=== PATIENT | female | born 1930 | race Caucasian/White ===

== ENCOUNTER 2018-02-09 19:33 | Inpatient (IN) ==
--- NOTE | 2018-02-09 19:47 | PDOC ---
HPI - History of Present Illness Date of Service: 02/09/18 Time of Service: 21:30 Chief Complaint: Right hip pain after a fall History of Present Illness: This is an 87 years old female with medical history significant for history of hypertension, coronary artery disease with previous MA treated medically, hypothyroidism, dementia who was transferred to the hospital from [facility] for right hip fracture. It's not clear to me when the patient had the fall. Per my discussion with the ER physician there he thought that it happened last Tuesday however the son as far as he knows she fell today. Evaluation in the ER in [place] showed right hip fracture this was discussed with Dr. Still who suggested transfer here to our service for management of medical issues and surgery in am. The patient has dementia and she received morphine before she came in here so no meaningful information can be obtained from her. She does not appear in distress. She denied pain. Past Medical History Medical History: 1. Hypertension. 2. Dementia. 3. History of arthritis. 4. History of macular degeneration. 5. History of aortic stenosis severity unknown. 6. History of coronary artery disease with previous infarction 2015. 7. History of pelvic fracture. 8. History of numerous fracture in 2015. 9. History of colon cancer status post surgery in 2013 Surgical History: 1. History of colon cancer status post the resection 2013. 2. History of hysterectomy. 3. History of bladder repair surgery Past Social History: does not smoke or drink, lives in a fdc in [place]. Tobacco Use: Never Smoker In the Past 12 Months, Have Used or Abuse Any of the Following Substance: None Alcohol Use: None Medication / Allergies Home Medications: Home Medications 3 Medication Instructions Recorded Confirmed Type Multivitamin [Multi-Vitamin Daily] 1 each PO QD tab 09/03/13 10/07/14 History Lisinopril 1 tab PO DAILY tab 08/23/16 History Memantine HCl [Namenda Xr] 1 cap PO DAILY cap 08/23/16 History Oxycodone HCl/Acetaminophen 1 tab PO Q4H PRN tab 08/23/16 History [Percocet 5-325 Mg Tablet] Sertraline HCl [Zoloft] 1 tab PO DAILY tab 08/23/16 History Acetaminophen [Acetaminophen Extra 2 tab PO Q6H PRN tab 08/30/16 History Strength] Alprazolam [Xanax] 1 tab PO Q8H PRN tab 09/13/16 History Aspirin [Aspir 81] 1 tab PO DAILY tab 09/13/16 History Atorvastatin Calcium 1 tab PO DAILY tab 09/13/16 History Clopidogrel Bisulfate [Plavix] 1 tab PO DAILY tab 09/13/16 History Hydrocodone/Acetaminophen 1 tab PO TID PRN tab 09/13/16 History [Hydrocodon-Acetaminophen 5-325] Allergies/Adverse Reactions: Allergies 3 Allergy/AdvReac Type Severity Reaction Status Date / Time No Known Allergies Allergy Verified 10/07/14 07:35 Review of Systems - Review of Systems ROS Unobtainable: Due to Mental Status Exam - General General Appearance: No Acute Distress, Thin Additional General Exam Details: Sleepy but arousable - Head Head Exam: Normal Inspection - Eye Eye Exam: POSITIVE: Normal Appearance - ENT ENT Exam: POSITIVE: Normal Exam - Neck Neck Exam: Normal Inspection - Respiratory Respiratory Exam: POSITIVE: Clear to Auscultation - Bilaterally - Cardiovascular Cardiovascular Exam: POSITIVE: RRR - GI/Abdominal GI/Abdominal Exam: POSITIVE: Normal Bowel Sounds, Non Tender, Non Distended, Soft, No Organomegaly - Rectal Rectal Exam: POSITIVE: Deferred - External Exam: POSITIVE: Deferred - Extremities Additional Extremities Exam Details: She is not very cooperative during the exam and not following all the commands. However she is moving her upper extremities. Lower extremities difficult to feel the pulses. - Neurological Additional Neurological Exam Details: Sleepy but arousable. Doesn't follow all the commands she is moving upper extremities freely. Not sure about the lower extremities as she is not following the commands. she is wiggling her toes. - Psychiatric Psychiatric Exam: POSITIVE: Flat Affect - Integumentary Integumentary Exam: POSITIVE: Dry Results - Labs CBC and BMP: 02/09/18 19:55 02/09/18 19:55 - EKG Data -: EKG Interpreted by Me (old anteroseptal MA) Rate: Normal EKG Shows Normal: Sinus Rhythm (EKG did show old anteroseptal MA. On her previous EKG to compare. But patient does have a history of MA.) - Imaging Status: Report Reviewed by Me (CT right showed 1. Intertrochanteric proximal right femur fracture. 2. Curvilinear defect and deformity at the left pubic bone is favored to be related to a non-healed chronic fracture given regional sclerotic changes and no significant regional hematoma. 3. Soft tissue contusion involving the right iliopsoas muscle and regional tissues.) Assessment and Plan - Patient Problems (1) Closed right hip fracture Current Visit: Yes Status: Acute Comment: Spoke with the Dr. Still he is planning to do surgery tomorrow. Based on the revised cardiac risk index criteria I think her rate of cardiac , non-fatal myocardial infarction and none fatal cardiac arrest is about 1% based on one risk factor which is a history of ischemic heart disease. Her rate of myocardial infarction, pulmonary edema, atrial fibrillation, cardiac arrest and complete heart block is 1.3%. I don't think there is a necessity to perform more testing since when she had her myocardial infarction the treatment at that time was medical treatment and noninvasive. In addition since the surgery is more urgent I think the benefits of proceeding with surgery outweighed the risk of waiting to perform other testing. I did speak with the son and he understands the risk of surgery including or MA. He wished for his mother to proceed with surgery. He is the power of deputy prosecuting attorney. Code(s): S72.001A - Fracture of unspecified part of neck of right femur, initial encounter for closed fracture (2) Hyponatremia Current Visit: Yes Status: Acute Comment: Unclear etiology, I think will give some fluid overnight since her blood pressure also is borderline and repeat her labs in the morning. Code(s): E87.1 - Hypo-osmolality and hyponatremia (3) Hypertension Current Visit: Yes Status: Acute Comment: I think we'll hold off on her Norvasc and her lisinopril as her blood pressure is borderline. Will write for the Toprol. Code(s): I10 - Essential (primary) hypertension (4) History of dementia Current Visit: Yes Status: Acute Comment: Continue with the fluoxetine and benzodiazepine as needed for agitation. For some reason she is on Depakote I am not sure why we'll continue with it. Code(s): Z86.59 - Personal history of other mental and behavioral disorders (5) Hypothyroidism Current Visit: Yes Status: Acute Comment: Same med Code(s): E03.9 - Hypothyroidism, unspecified
--- NOTE | 2018-02-09 20:04 | EKG ---
[address] [address] Measurements Intervals [place] Rate: 75 P: 86 NC: 167 QRS: 44 QRSD: 89 T: 61 QT: 405 QTc: 433 Interpretive Statements SINUS RHYTHM ANTEROSEPTAL MYOCARDIAL INFARCTION [40+ ms Q WAVE IN V1-V4], OF INDETERMINATE AGE Compared to ECG 08/19/2013 22:30:06 Sinus tachycardia no longer present Myocardial infarct finding still present Inferior ST depression more marked Electronically Signed On 02-10-18 08:50:19 MDT by Brock Mcintyre MD [email or web address]
[2018-02-09 20:08] LABS: BASOPHILS # (AUTO) 0 10*3/UL; BASOPHILS % (AUTO) 0 % (0-1); EOSINOPHILS # (AUTO) 0 10*3/UL; EOSINOPHILS % (AUTO) 0 % (0-8); Hematocrit [HCT] 30.6 % (37.0-47.0); Hemoglobin [HGB] 10.3 g/dL (12.0-16.0); LYMPHOCYTES # (AUTO) 0.29 10*3/uL; MEAN CORPUSCULAR HEMOGLOBIN 33.7 PG (27-31); MEAN CORPUSCULAR HGB CONC 33.7 g/dL (33-37); MEAN PLATELET VOLUME 9.5 FL (7.4-12.2); MONOCYTES % (AUTO) 9.7 % (5-15); NEUTROPHILS # (AUTO) 9.01 10*3/UL; NEUTROPHILS % (AUTO) 87.3 % (50-80); RED BLOOD COUNT 3.06 10^6/uL (4.20-5.40)
[2018-02-09 20:13] LABS: PLATELET MORPHOLOGY COMMENT NORMAL MORPHOLOGY (NORM); RBC MORPHOLOGY COMMENT NORMAL MORPHOLOGY (NORM); WBC MORPHOLOGY COMMENT NORMAL MORPHOLOGY (NORM)
[2018-02-09 20:19] LABS: BLOOD UREA NITROGEN 27 mg/dL (7-22); BUN/CREATININE RATIO 24.54 (6-20); SERUM ALBUMIN 3.9 g/dL (3.5-4.8)
[2018-02-09] MEDS ORDERED: DOCUSATE 100 MG CAPSULE PO PRN (21:07)
[2018-02-09] MEDS ORDERED: LIDOCAINE W/ SODIUM BICARB 0.5 ML SYR SUBD PRN (21:07)
[2018-02-09] MEDS ORDERED: CALCIUM CARBONATE 500 MG (TUMS) CHEWABLE TABLET PO PRN (21:07)
[2018-02-09] MEDS ORDERED: NORMAL SALINE 10 ML SYRINGE FLUSH IVP PRN (21:07)
[2018-02-09] MEDS ORDERED: ONDANSETRON 4 MG/2 ML VIAL IVP PRN (21:07)
[2018-02-09] MEDS ORDERED: ACETAMINOPHEN 325 MG TABLET PO PRN (21:07)
[2018-02-09] MEDS ORDERED: DIVALPROEX SODIUM 250 MG TABLET PO SCH (21:13)
[2018-02-09] MEDS ORDERED: ALPRAZolam Tab 0.25 MG TABLET PO PRN (21:15)
--- NOTE | 2018-02-09 21:39 | DI ---
EXAM: CT Pelvis Without Intravenous Contrast CLINICAL HISTORY: ITS.REASON RT HIP FX Physician Notes: Tech Comments: TECHNIQUE: Axial computed tomography images of the pelvis without intravenous contrast. COMPARISON: No relevant prior studies available. FINDINGS: Bowel: Postsurgical changes noted at the rectum. Hysterectomy is noted. Colonic diverticulosis is present without evidence for acute diverticulitis. No obstruction. Appendix: No findings to suggest acute appendicitis. Intraperitoneal space: Unremarkable. No free air. No significant fluid collection. Bladder: Unremarkable. No stones. Reproductive: See above. Bones/joints: Complex intertrochanteric right femoral fracture is present with component of impaction and slight angulation. The right femoral acetabular joint is intact,. Fracture deformity of the left superior and inferior pubic ramus, extending into the pubic symphysis. There is regional sclerosis and callus formation, without complete fusion at the curvilinear defect. Symmetric joint space narrowing at the femoral acetabular joints, with mild rim osteophytosis. Bilateral sacroiliac joint arthropathy and multilevel degenerative disc disease noted. No dislocation. Soft tissues: Soft tissue edema and likely contusion involving the right iliopsoas. Stranding extends along the right iliac/common femoral vessels. Soft tissue contusion to the subcutaneous fat at the level of the right femoral fracture. Vasculature: Atherosclerosis. No lower abdominal aortic aneurysm. Lymph nodes: Unremarkable. No enlarged lymph nodes. IMPRESSION: 1. Intertrochanteric proximal right femur fracture. 2. Curvilinear defect and deformity at the left pubic bone is favored to be related to a non-healed chronic fracture given regional sclerotic changes and no significant regional hematoma. 3. Soft tissue contusion involving the right iliopsoas muscle and regional tissues.
[2018-02-09] MEDS: MORPHINE SULFATE 2 MG/1 ML IVP PRN (22:25)
[2018-02-09] MEDS: Sodium Chloride 0.9% 1,000 ML IV SCH (22:25)
[2018-02-09] MEDS: DIVALPROEX SODIUM 250 MG TABLET PO SCH (22:28)
[2018-02-10] MEDS: MORPHINE SULFATE 2 MG/1 ML IVP PRN ×2 (04:22→09:17)
[2018-02-10] MEDS ORDERED: LIDOCAINE HCL 2 % 10 ML JELLY URO-JECT TOPICAL PRN (05:02)
[2018-02-10 06:09] LABS: BLOOD UREA NITROGEN 34 mg/dL (7-22); BUN/CREATININE RATIO 18.88 (6-20)
[2018-02-10] MEDS: LEVOTHYROXINE 25 MCG TABLET PO SCH (06:17)
[2018-02-10 08:28] LABS: BILIRUBIN,URINE SMALL (NEG); COLOR,URINE YELLOW; GLUCOSE, URINE (UA) 100 mg/dL (NEG); OCCULT BLOOD,URINE MODERATE (NEG); PROTEIN,URINE 100 mg/dl (NEG); UROBILINOGEN,URINE 0.2 mg/dL (0.2)
[2018-02-10 08:32] LABS: CLARITY,URINE CLOUDY (CLEAR)
[2018-02-10 08:33] LABS: BACTERIA,URINE FEW; SQUAMOUS EPITHELIAL CELL,UR MODERATE; URINE CRYSTALS MODERATE; URINE SAMPLE TYPE CATH SPECIMEN
[2018-02-10] MEDS ORDERED: FLUoxetine 20 MG CAPSULE PO SCH (09:00)
--- NOTE | 2018-02-10 09:01 | CONSULT ---
Consult Note - Consult Consult Date: 02/10/18 Reason for Consult: PreOp Consulation : Ortho Primary Care Provider: ÁNGEL BACA - History of Present Illness History of Present Illness: Monik is an 87-year-old female with severe dementia was transferred late last evening with a right peritrochanteric hip fracture. She resides at the [facility]. She is a very limited ambulator. Apparently she only pivot transfers. There was some lengthy discussion yesterday prior to transfer between the patient's son and the emergency room physician. It was discussed whether or not he wanted to have his mother's hip fixed. Apparently the decision was made for her to have it fixed. She was therefore transported to our facility in [facility]. I visited with the patient this morning. She is lying on the bed awake but not conversant. Does not seem to be having a tremendous amount of pain. Exam reveals a pleasant female 128 pounds mild discomfort. Right lower extremity is externally rotated. Intact laterally. Hemoglobin and hematocrit 10 and 30. X-rays of the right hip as well as CAT scan were reviewed. These reveal a peritrochanteric hip fracture with varus posture. There is comminution of the greater trochanter. Impression: Right peritrochanteric hip fracture. Plan: Is to proceed with intramedullary screw fixation. I think a compression hip screw could be a backup plan but I think the intramedullary device will be more stable. The goals are fairly limited with this patient. Basically giving her a more stable hip so that she can sit up in transfer. I will discuss the risks with the son will be present later this morning. Plan on proceeding midafternoon. The risks include but are not limited to infection, nonunion, malunion, hardware cut out, nerve injury, bleeding, anesthetic complications, and even . Informed consent will be obtained prior to proceeding. Past Medical History Medical History: 1. Hypertension. 2. Dementia. 3. History of arthritis. 4. History of macular degeneration. 5. History of aortic stenosis severity unknown. 6. History of coronary artery disease with previous infarction 2015. 7. History of pelvic fracture. 8. History of numerous fracture in 2015. 9. History of colon cancer status post surgery in 2013 Surgical History: 1. History of colon cancer status post the resection 2013. 2. History of hysterectomy. 3. History of bladder repair surgery Past Social History: does not smoke or drink, lives in a fpc in [place]. Tobacco Use: Never Smoker In the Past 12 Months, Have Used or Abuse Any of the Following Substance: None Alcohol Use: None Medication / Allergies Home Medications: Home Medications 3 Medication Instructions Recorded Confirmed Type Multivitamin [Multi-Vitamin Daily] 1 each PO QD tab 09/03/13 10/07/14 History Lisinopril 1 tab PO DAILY tab 08/23/16 History Memantine HCl [Namenda Xr] 1 cap PO DAILY cap 08/23/16 History Oxycodone HCl/Acetaminophen 1 tab PO Q4H PRN tab 08/23/16 History [Percocet 5-325 Mg Tablet] Sertraline HCl [Zoloft] 1 tab PO DAILY tab 08/23/16 History Acetaminophen [Acetaminophen Extra 2 tab PO Q6H PRN tab 08/30/16 History Strength] Alprazolam [Xanax] 1 tab PO Q8H PRN tab 09/13/16 History Aspirin [Aspir 81] 1 tab PO DAILY tab 09/13/16 History Atorvastatin Calcium 1 tab PO DAILY tab 09/13/16 History Clopidogrel Bisulfate [Plavix] 1 tab PO DAILY tab 09/13/16 History Hydrocodone/Acetaminophen 1 tab PO TID PRN tab 09/13/16 History [Hydrocodon-Acetaminophen 5-325] ALPRAZolam Tab [Xanax Tab] PO TID PRN 02/10/18 History Acetaminophen 500 PO TID PRN 02/10/18 History Amlodipine Besylate PO QPM 02/10/18 History Celecoxib [Celebrex] PO DAILY 02/10/18 History Cholestyramine [Cholestyramine PO BID 02/10/18 History Resin] Cyanocobalamin Inj [Vitamin B-12 1 ml IM Q30D 02/10/18 02/10/18 History Inj] Divalproex Sodium [Depakote] PO 02/10/18 History Fluoxetine HCl PO DAILY 02/10/18 History HYDROcodone/APAP 5/325 Tab [[place] PO TID PRN 02/10/18 History 5/325 Tab] Levothyroxine Sodium [Synthroid] PO QAM 02/10/18 History Lidocaine/Prilocaine TOPICAL BID 02/10/18 History [Lidocaine-Prilocaine Cream] Lisinopril PO BID 02/10/18 History Loperamide [Imodium] PO Q4H PRN PRN 02/10/18 History Lutein 20 PO DAILY 02/10/18 History Metoprolol Succinate [Toprol XL] 25 PO BID 02/10/18 History Pantoprazole Sodium [Protonix] 40 PO DAILY 02/10/18 History Allergies/Adverse Reactions: Allergies 3 Allergy/AdvReac Type Severity Reaction Status Date / Time citalopram [From Celexa] Allergy NOT Verified 02/10/18 06:30 APPLICABLE donepezil [From Aricept] Allergy NOT Verified 02/10/18 06:30 APPLICABLE nitrofurantoin Allergy NOT Verified 02/10/18 06:30 APPLICABLE promethazine [From Phenergan] Allergy NOT Verified 02/10/18 06:30 APPLICABLE Exam - Vitals Vital Signs: Vital Signs Temperature 97.9 F Temperature Source Temporal Artery Scan Pulse Rate [Pulse Oximeter] 74 Pulse Rate [Left Dorsalis 72 Pedis] Pulse Rate [Right Dorsalis 72 Pedis] Pulse Rate [Bilateral Radial] 72 Pulse Rate [Apical] 72 Respiratory Rate 18 Blood Pressure [Right Arm] 92/43 Pulse Ox 90 Oxygen Flow Rate 2 Oxygen Delivery Method Nasal Cannula Height 5 ft 4 in Weight 128 lb Results - Labs CBC and BMP: 02/09/18 19:55 02/10/18 04:25
[2018-02-10] MEDS: Metoprolol TARTRATE Tab 25 MG TAB PO SCH ×2 (09:09→20:57)
[2018-02-10] MEDS: DIVALPROEX SODIUM 250 MG TABLET PO SCH ×2 (09:09→20:22)
[2018-02-10] MEDS: FLUOXETINE 10 MG PO SCH (09:10)
[2018-02-10] MEDS: PANTOPRAZOLE 40 MG TABLET PO SCH (09:13)
--- NOTE | 2018-02-10 09:36 | PDOC(PROG) ---
Date and Time of Service: 02/10/2018 9:33 AM Interval History: Subjective Patient is sleepy but arousable. Denying pain. I keep reminding her that's the reason she is here as the fracture right hip and she still doesn't remember. Objective : Data - Labs CBC and BMP: 02/09/18 19:55 02/10/18 11:57 Objective : Exam - General General Appearance: No Acute Distress, Cooperative, Thin - Head Head Exam: Normal Inspection - Eye Eye Exam: Normal Appearance - ENT ENT Exam: Normal Exam - Neck Neck Exam: Normal Inspection - Respiratory Respiratory Exam: Clear to Auscultation - Bilaterally - Cardiovascular Cardiovascular Exam: RRR, Systolic Murmur - GI/Abdominal GI/Abdominal Exam: Normal Bowel Sounds, Non Tender, Non Distended, Soft, No Organomegaly - Rectal Rectal Exam: Deferred - External Exam: Deferred - Extremities Additional Extremities Exam Details: Right leg is externally rotated. She is disoriented to time place person. This is secondary to her underlying dementia. - Neurological Neurological Exam: Alert Additional Neurological Exam Details: She is moving her upper extremities well. She was wiggling her toes. Limited movement of the right hip because of pain - Psychiatric Psychiatric Exam: Flat Affect Assessment and Plan - Patient Problems (1) Closed right hip fracture Current Visit: Yes Status: Acute Comment: Supposed to have the surgery today in the afternoon. Code(s): S72.001A - Fracture of unspecified part of neck of right femur, initial encounter for closed fracture (2) Hyponatremia Current Visit: Yes Status: Acute Comment: Continue IV fluid. Code(s): E87.1 - Hypo-osmolality and hyponatremia (3) Hypertension Current Visit: Yes Status: Acute Comment: Continue holding blood pressure medication as her blood pressure is borderline. Code(s): I10 - Essential (primary) hypertension (4) History of dementia Current Visit: Yes Status: Acute Comment: Resume her previous medication postsurgery. Code(s): Z86.59 - Personal history of other mental and behavioral disorders (5) Hypothyroidism Current Visit: Yes Status: Acute Comment: Same med Code(s): E03.9 - Hypothyroidism, unspecified (6) Acute renal failure Current Visit: Yes Status: Acute Comment: Her creatinine is worse today. I think will give her more fluids and repeat her labs in the noontime. and decided about the surgery Code(s): N17.9 - Acute kidney failure, unspecified (7) Abnormal finding on urinalysis Current Visit: Yes Status: Acute Comment: UA is abnormal, was sent for culture will give a dose of Rocephin. Code(s): R82.90 - Unspecified abnormal findings in urine
[2018-02-10] MEDS ORDERED: Sodium Chloride 0.9% 250 ML IV ONE (09:45)
[2018-02-10] MEDS ORDERED: Sodium Chloride 0.9% 0 ML IV ONE (10:16)
[2018-02-10] MEDS: cefTRIAXone Inj 1 GM in Sodium Chloride 0.9% 100 ML IV SCH (10:22)
[2018-02-10 12:33] LABS: BLOOD UREA NITROGEN 38 mg/dL (7-22); BUN/CREATININE RATIO 18.09 (6-20)
[2018-02-10] MEDS: Sodium Chloride 0.9% 1,000 ML IV SCH ×3 (12:36→23:19)
[2018-02-10] MEDS ORDERED: fentaNYL Inj 100 MCG/2 ML VIAL IVP PRN (12:46)
[2018-02-10] MEDS ORDERED: ATROPINE SULFATE 0.4 MG/1 ML VIAL IVP PRN (12:46)
[2018-02-10] MEDS ORDERED: HYDROmorphone 2 MG/1 ML IVP PRN (12:46)
[2018-02-10] MEDS ORDERED: NORMAL SALINE 10 ML SYRINGE FLUSH IVP PRN (12:46)
[2018-02-10] MEDS ORDERED: Ondansetron ODT Tab 8 MG TAB PO PRN (12:46)
[2018-02-10] MEDS ORDERED: LIDOCAINE W/ SODIUM BICARB 0.5 ML SYR SUBD PRN (12:46)
[2018-02-10] MEDS ORDERED: Prochlorperazine Edisylate Inj 10mg/2ml vial IVP PRN (12:46)
[2018-02-10] MEDS ORDERED: ONDANSETRON 4 MG/2 ML VIAL IVP PRN (12:46)
[2018-02-10] MEDS ORDERED: Lactated Ringers 1,000 ML PRIMARY IV SCH (13:00)
[2018-02-10] MEDS: HYDROcodone-APAP 5 MG -325 MG TABLET PO PRN ×2 (13:32→17:27)
[2018-02-11] MEDS: MORPHINE SULFATE 2 MG/1 ML IVP PRN ×2 (03:19→06:57)
[2018-02-11 05:33] LABS: BASOPHILS # (AUTO) 0.01 10*3/UL; BASOPHILS % (AUTO) 0.1 % (0-1); EOSINOPHILS # (AUTO) 0 10*3/UL; EOSINOPHILS % (AUTO) 0 % (0-8); Hemoglobin [HGB] 7.3 g/dL (12.0-16.0); LYMPHOCYTES # (AUTO) 0.24 10*3/uL; MEAN CORPUSCULAR HEMOGLOBIN 34.4 PG (27-31); MEAN CORPUSCULAR HGB CONC 33.2 g/dL (33-37); MEAN CORPUSCULAR VOLUME 103.8 FL (81-99); MEAN PLATELET VOLUME 10.1 FL (7.4-12.2); MONOCYTES # (AUTO) 1.45 10*3/UL (0.3-0.8); MONOCYTES % (AUTO) 15.7 % (5-15); NEUTROPHILS # (AUTO) 7.55 10*3/UL; NEUTROPHILS % (AUTO) 81.5 % (50-80); RED BLOOD COUNT 2.12 10^6/uL (4.20-5.40)
[2018-02-11 05:46] LABS: BLOOD UREA NITROGEN 33 mg/dL (7-22); SERUM ALBUMIN 2.8 g/dL (3.5-4.8)
[2018-02-11 05:49] LABS: PLATELET MORPHOLOGY COMMENT NORMAL MORPHOLOGY (NORM); RBC MORPHOLOGY COMMENT NORMAL MORPHOLOGY (NORM); WBC MORPHOLOGY COMMENT NORMAL MORPHOLOGY (NORM)
[2018-02-11] MEDS: PANTOPRAZOLE 40 MG TABLET PO SCH (06:40)
[2018-02-11] MEDS: LEVOTHYROXINE 25 MCG TABLET PO SCH (06:40)
[2018-02-11] MEDS: Sodium Chloride 0.9% 1,000 ML IV SCH ×4 (06:40→21:16)
[2018-02-11] MEDS: HYDROcodone-APAP 5 MG -325 MG TABLET PO PRN ×3 (06:43→17:25)
[2018-02-11] MEDS ORDERED: Sodium Chloride 0.9% 500 ML PRIMARY IV ONE (08:13)
--- NOTE | 2018-02-11 08:17 | PDOC(PROG) ---
Date and Time of Service: 02/11/2018 8:16 AM Interval History: Subjective Patient is sleepy but arousable. However she has dementia and she doesn't say much. Yesterday we did postpone the surgery because of low blood pressure and acute renal failure. Blood pressure numbers seem to be better today. Objective : Data - Labs CBC and BMP: 02/11/18 04:30 02/11/18 04:30 Objective : Exam - General General Appearance: No Acute Distress, Thin - Head Head Exam: Normal Inspection - Eye Eye Exam: Normal Appearance - ENT ENT Exam: Normal Exam - Neck Neck Exam: Normal Inspection - Respiratory Respiratory Exam: Clear to Auscultation - Bilaterally - Cardiovascular Cardiovascular Exam: Systolic Murmur - GI/Abdominal GI/Abdominal Exam: Normal Bowel Sounds, Non Tender, Non Distended, Soft, No Organomegaly - Rectal Rectal Exam: Deferred - External Exam: Deferred - Extremities Additional Extremities Exam Details: Right leg externally rotated. - Neurological Additional Neurological Exam Details: Sleepy but arousable. Moves her extremities except the limited of the right leg.. - Psychiatric Psychiatric Exam: Flat Affect - Integumentary Integumentary Exam: Dry, Pallor Assessment and Plan - Patient Problems (1) Closed right hip fracture Current Visit: Yes Status: Acute Comment: Surgery was postponed yesterday because of the hypotension and the renal failure, her blood pressure and kidney function improved today. I did speak with Dr. Still because of the anemia will give her two units of bloods and plan for surgery tomorrow. Code(s): S72.001A - Fracture of unspecified part of neck of right femur, initial encounter for closed fracture (2) Hyponatremia Current Visit: Yes Status: Acute Comment: This is improved, I think we'll cut back on the fluid. Code(s): E87.1 - Hypo-osmolality and hyponatremia (3) Hypertension Current Visit: Yes Status: Acute Comment: I thinks we can Resume her metoprolol as blood pressure seem to be better. Code(s): I10 - Essential (primary) hypertension (4) History of dementia Current Visit: Yes Status: Acute Comment: Continue fluoxetine and alprazolam as needed Code(s): Z86.59 - Personal history of other mental and behavioral disorders (5) Hypothyroidism Current Visit: Yes Status: Acute Comment: Same med Code(s): E03.9 - Hypothyroidism, unspecified (6) Acute renal failure Current Visit: Yes Status: Acute Comment: Looks to be pre-renal . This is improved. Code(s): N17.9 - Acute kidney failure, unspecified (7) Abnormal finding on urinalysis Current Visit: Yes Status: Acute Comment: UA was abnormal and we elected to start her on antibiotics continue. Code(s): R82.90 - Unspecified abnormal findings in urine (8) Anemia Current Visit: Yes Status: Acute Comment: Blood count is low at 7.3 was 10.3 when she came in. I suspect she has underlying anemia for a period of time. Her iron levels are low. I think will give her 2 units of blood repeat her labs tomorrow. Code(s): D64.9 - Anemia, unspecified
[2018-02-11] MEDS: DIVALPROEX SODIUM 250 MG TABLET PO SCH ×2 (09:55→21:14)
[2018-02-11] MEDS: Metoprolol TARTRATE Tab 25 MG TAB PO SCH ×2 (09:55→21:15)
[2018-02-11] MEDS: cefTRIAXone Inj 1 GM in Sodium Chloride 0.9% 100 ML IV SCH (09:56)
[2018-02-11] MEDS: FLUOXETINE 10 MG PO SCH (09:59)
--- NOTE | 2018-02-11 11:19 | ORTHO.PROG ---
Last Taken Vital Signs: Vital Signs - Last Taken Temperature 98.2 F 02/11/18 11:04 Pulse Rate 74 02/11/18 11:04 Respiratory Rate 13 02/11/18 11:04 Blood Pressure 112/46 02/11/18 11:04 Pulse Ox 99 02/11/18 11:04 Subjective: Patient lying in bed. Her surgery was postponed yesterday because of acute renal failure and hypotension. Her blood pressure is better this morning. Her renal failure seems to be correcting. Her hemoglobin and hematocrit is low at 7.3 and 22. She will be given 2 units of blood today. Objective: Right lower extremity is on a pillow. Lateral skin is intact. X-rays of been previously reviewed. Hemoglobin and hematocrit 7.3 and 22. Assessment: Impression: Right peritrochanteric hip fracture. #2 anemia. #3 severe dementia. Plan: Plan: Is the patient will receive 2 units of blood today. We will type and cross and have 2 more units available for tomorrow. Plan on proceeding with surgery tomorrow around 11:30 as long as the patient remains stable between now and then.
[2018-02-12] MEDS: MORPHINE SULFATE 2 MG/1 ML IVP PRN ×3 (03:20→18:08)
[2018-02-12] MEDS: LEVOTHYROXINE 25 MCG TABLET PO SCH (04:40)
[2018-02-12 06:42] LABS: BASOPHILS # (AUTO) 0.01 10*3/UL; BASOPHILS % (AUTO) 0.1 % (0-1); EOSINOPHILS # (AUTO) 0.03 10*3/UL; EOSINOPHILS % (AUTO) 0.4 % (0-8); Hemoglobin [HGB] 10.4 g/dL (12.0-16.0); LYMPHOCYTES # (AUTO) 0.19 10*3/uL; MEAN CORPUSCULAR HEMOGLOBIN 31.5 PG (27-31); MEAN CORPUSCULAR HGB CONC 32.5 g/dL (33-37); MEAN PLATELET VOLUME 9.7 FL (7.4-12.2); MONOCYTES # (AUTO) 0.91 10*3/UL (0.3-0.8); MONOCYTES % (AUTO) 13.1 % (5-15); NEUTROPHILS # (AUTO) 5.78 10*3/UL; NEUTROPHILS % (AUTO) 83.6 % (50-80)
[2018-02-12 06:56] LABS: PLATELET MORPHOLOGY COMMENT NORMAL MORPHOLOGY (NORM); RBC MORPHOLOGY COMMENT NORMAL MORPHOLOGY (NORM); WBC MORPHOLOGY COMMENT NORMAL MORPHOLOGY (NORM)
[2018-02-12 07:02] LABS: BLOOD UREA NITROGEN 22 mg/dL (7-22); BUN/CREATININE RATIO 36.66 (6-20)
[2018-02-12] MEDS: Sodium Chloride 0.9% 1,000 ML IV SCH (07:45)
--- NOTE | 2018-02-12 08:16 | ORTHO.PROG ---
Last Taken Vital Signs: Vital Signs - Last Taken Temperature 97.0 F 02/12/18 07:33 Pulse Rate 72 02/12/18 07:33 Respiratory Rate 16 02/12/18 07:33 Blood Pressure 162/57 02/12/18 07:33 Pulse Ox 92 02/12/18 07:33 Subjective: Patient lying in bed. Received 2 units of blood yesterday Objective: Vital signs stable patient is afebrile Hemoglobin and hematocrit 10 and 32, platelets 116 Assessment: Impression: Right hip fracture. Hemoglobin has corrected nicely with blood she received yesterday. Plan: Plan: Is to proceed with fixation of right hip today. We will type and cross 2 more more units of blood so it is available.
[2018-02-12] MEDS: PANTOPRAZOLE 40 MG TABLET PO SCH (08:57)
[2018-02-12] MEDS: DIVALPROEX SODIUM 250 MG TABLET PO SCH (10:05)
[2018-02-12] MEDS: Metoprolol TARTRATE Tab 25 MG TAB PO SCH (10:06)
[2018-02-12] MEDS: FLUOXETINE 10 MG PO SCH (10:06)
[2018-02-12] MEDS: cefTRIAXone Inj 1 GM in Sodium Chloride 0.9% 100 ML IV SCH (10:13)
[2018-02-12] MEDS ORDERED: MIDAZOLAM 5 MG/1 ML ONE (10:34)
[2018-02-12] MEDS ORDERED: LIDOCAINE W/ SODIUM BICARB 0.5 ML SYR ONE (10:35)
[2018-02-12] MEDS ORDERED: KETAMINE 100 MG/1 ML - 5 ML ONE (10:35)
[2018-02-12] MEDS ORDERED: Lactated Ringers 1,000 ML PRIMARY IV ONE (10:35)
[2018-02-12] MEDS ORDERED: fentaNYL Inj 100 MCG/2 ML VIAL ONE ×2 (10:35→13:05)
[2018-02-12] MEDS ORDERED: Sodium Chloride 0.9% vial 10 ML ONE (10:36)
[2018-02-12] MEDS ORDERED: VECURONIUM BROMIDE 10 MG VIAL ONE (10:36)
[2018-02-12] MEDS ORDERED: PHENYLEPHRINE 10,000 MCG/1 ML VIAL ONE (10:42)
[2018-02-12] MEDS ORDERED: Sodium Chloride 0.9% 250 ML IV ONE (10:52)
[2018-02-12] MEDS ORDERED: PROPOFOL 10 MG/1 ML (200 MG/20 ML) VIAL IV ONE (11:03)
[2018-02-12] MEDS ORDERED: ceFAZolin Inj 2gm (Premix) 2 GM/50 ML BAG IV ONE ×2 (11:09→11:30)
[2018-02-12] MEDS ORDERED: BUPIVACAINE 0.25% W/ EPI - 10 ML VIAL ONE (12:54)
[2018-02-12] MEDS ORDERED: NEOSTIGMINE 1 MG/1 ML - 10 ML ONE (12:56)
[2018-02-12] MEDS ORDERED: GLYCOPYRROLATE 0.2 MG/1 ML VIAL ONE (12:56)
[2018-02-12] MEDS ORDERED: ONDANSETRON 4 MG/2 ML VIAL ONE (12:57)
[2018-02-12] MEDS ORDERED: fentaNYL Inj 100 MCG/2 ML VIAL IVP PRN (13:38)
[2018-02-12] MEDS ORDERED: LIDOCAINE W/ SODIUM BICARB 0.5 ML SYR SUBD PRN (13:38)
[2018-02-12] MEDS ORDERED: ONDANSETRON 4 MG/2 ML VIAL IVP PRN ×2 (13:38→14:58)
[2018-02-12] MEDS ORDERED: NORMAL SALINE 10 ML SYRINGE FLUSH IVP PRN (13:38)
[2018-02-12] MEDS ORDERED: ATROPINE SULFATE 0.4 MG/1 ML VIAL IVP PRN (13:38)
--- NOTE | 2018-02-12 13:39 | ORTHO.OP ---
Surgery Date: 02/12/18 Preoperative Diagnosis: Right intertrochanteric peritrochanteric hip fracture. Postoperative Diagnosis: Same Procedure: Open treatment right intertrochanteric hip fracture with a cephalo- medullary nail. (Biomet affixus nail) Surgeon: Aleja Still MD Sewing Machine Operator: CATHLEEN Pandya Anesthesia Provider: Kathy Zepeda CRNA Anesthesia Type: General Estimated Blood Loss (mL): 100 Fluids: 1 L of crystalloid. Urine output 150 mL. Complications: None Operative Summary: Extubated and taken to recovery in stable condition.
[2018-02-12] MEDS ORDERED: Sodium Chloride 0.9% 1,000 ML ONE (13:42)
[2018-02-12] MEDS ORDERED: Lactated Ringers 1,000 ML PRIMARY IV SCH (13:45)
[2018-02-12] MEDS ORDERED: METOPROLOL TARTRATE 5 MG/5 ML VIAL ONE (14:15)
--- NOTE | 2018-02-12 14:19 | CRNA.PROGR ---
Anesthesia Time - - Start date: 02/12/18 End date: 02/12/18 - Procedure/Recovery Time Anesthesia : Time In: 11:11 Anesthesia : Time Out: 13:45 Anesthesia : Total Time: 154 - Total Anesthesia Time Total Anesthesia Time (minutes): 154 - Other Weight: 58.06 kg Height: 5 ft 4 in Body Mass Index (BMI): 21.9 Physical Status: P4 (Hip fracture, Dementia, HTN, ASCVD) Anesthesia Type: General Anesthesia : ET
--- NOTE | 2018-02-12 14:20 | CRNA.PROGR ---
Anesthesia Recovery Phase I - Post Anesthesia Evaluation Patient's Condition on Arrival in Phase I: Stable Patient's Condition on Arrival in Phase II: Stable Pain Level: 1 (denies pain. ?)
--- NOTE | 2018-02-12 14:25 | CRNA.PROGR ---
Post Anesthesia Phase II - Post Anesthesia Phase II Patient Stable and Discharged To: Med/Surg Care Assumed By Surgeon: Aleja Still MD Temperature: 98.7 F Pulse Rate: 83 Respiratory Rate: 13 Blood Pressure: 196/93 Pulse Ox: 98 Total Charley Score at Discharge: 8 Post Anesthesia Discharge Criteria Met: Yes Additional Details: Dementia unchanged. She denies pain. BP ELEVATED . Gave metoprolol 2.5 mg. since she did not get her am oral dose. Very difficult to determine if she has pain.Will leave Blood pressure issues to Hospitalist.
[2018-02-12] MEDS ORDERED: MORPHINE SULFATE 2 MG/1 ML IVP PRN (14:58)
[2018-02-12] MEDS ORDERED: D5-1/2NS + 20mEq KCL 1,000 ML PRIMARY IV SCH (14:58)
[2018-02-12] MEDS ORDERED: HYDROcodone-APAP 5 MG -325 MG TABLET PO PRN (14:58)
[2018-02-12] MEDS ORDERED: ALPRAZolam Tab 0.25 MG TABLET PO PRN (14:58)
[2018-02-12] MEDS ORDERED: CYANOCOBALAMIN 1000 MCG/1 ML VIAL IM SCH (14:58)
[2018-02-12] MEDS ORDERED: LABETALOL 20 MG/4 ML (5 MG/1 ML) SYRINGE IVP PRN (15:27)
--- NOTE | 2018-02-12 15:54 | PDOC(PROG) ---
Date and Time of Service: 02/12/2018, 1548 Interval History: out of surgery. was hypertensive but came down some with pain medications. got two units FFP in OR, probably related to thrombocytopenia. no complaints during my exam. stop fluids. Objective : Data - Labs CBC and BMP: 02/12/18 06:32 02/12/18 06:32 Additional Lab Results: 02/10/18 08:57 Urine Culture - Preliminary Urine,Catheterized > 100,000 gram positive cocci Objective : Exam - General General Appearance: No Acute Distress Additional General Exam Details: Vital Signs - Last Taken Temperature 97.5 F 02/12/18 14:35 Pulse Rate 83 02/12/18 14:35 Respiratory Rate 12 02/12/18 14:35 Blood Pressure 177/86 02/12/18 14:35 Pulse Ox 97 02/12/18 14:35 - Head Head Exam: Normal Inspection, Normocephalic, Atraumatic - Eye Eye Exam: No Scleral Icterus - ENT ENT Exam: Mucous Membranes Moist - Respiratory Respiratory Exam: Clear to Auscultation - Bilaterally, Breathing Non Labored - Cardiovascular Cardiovascular Exam: RRR, No Clicks, No Gallops, No Rubs, Systolic Murmur, No JVD - GI/Abdominal GI/Abdominal Exam: Normal Bowel Sounds, Non Tender, Non Distended, Soft - Exam: Roberts Catheter in Place (urine clear.) - Extremities Extremities Exam: No Clubbing Present, No Edema Present, No Cyanosis Present Additional Extremities Exam Details: right hip swelling from fracture, surgery, with ice applied hip is dressed, clean, dry, and intact. - Neurological Neurological Exam: Alert, No Facial Droop Assessment and Plan - Patient Problems (1) Closed right hip fracture Current Visit: Yes Status: Acute Code(s): S72.001A - Fracture of unspecified part of neck of right femur, initial encounter for closed fracture Qualifiers: Encounter type: initial encounter Qualified Code(s): S72.001A - Fracture of unspecified part of neck of right femur, initial encounter for closed fracture (2) Hypertension Current Visit: Yes Status: Acute Code(s): I10 - Essential (primary) hypertension Qualifiers: Hypertension type: essential hypertension Qualified Code(s): I10 - Essential (primary) hypertension (3) Hypothyroidism Current Visit: Yes Status: Chronic Code(s): E03.9 - Hypothyroidism, unspecified Qualifiers: Hypothyroidism type: acquired Qualified Code(s): E03.9 - Hypothyroidism, unspecified (4) Abnormal finding on urinalysis Current Visit: Yes Status: Acute Code(s): R82.90 - Unspecified abnormal findings in urine (5) Anemia Current Visit: Yes Status: Acute Code(s): D64.9 - Anemia, unspecified (6) Hyponatremia Current Visit: Yes Status: Acute Code(s): E87.1 - Hypo-osmolality and hyponatremia (7) Acute renal failure Current Visit: Yes Status: Resolved Code(s): N17.9 - Acute kidney failure, unspecified Qualifiers: Acute renal failure type: unspecified Qualified Code(s): N17.9 - Acute kidney failure, unspecified (8) Dementia Current Visit: Yes Status: Acute Code(s): F03.90 - Unspecified dementia without behavioral disturbance Qualifiers: Dementia type: unspecified type Dementia behavioral disturbance: without behavioral disturbance Qualified Code(s): F03.90 - Unspecified dementia without behavioral disturbance - Assessment / Plan Additional Assessment/Plan Details: stop IV fluids--got a liter in OR and FFP in OR stop ACEI/ARB with perioperative renal failure associations Morphine PRN for pain BP meds PRN check labs in AM two more doses of ancef check urine cultures for final organisms.
[2018-02-12] MEDS ORDERED: Pantoprazole Inj 40 MG in Normal Saline Flush 10 ML IVP ONE (16:53)
[2018-02-12] MEDS: NORMAL SALINE 10 ML SYRINGE FLUSH IVP PRN (18:09)
[2018-02-12] MEDS: ceFAZolin Inj 2 GM in Sodium Chloride 0.9% 100 ML IV SCH (18:54)
[2018-02-12] MEDS: DOCUSATE 100 MG CAPSULE PO SCH (21:32)
[2018-02-12] MEDS: DIVALPROEX SODIUM 500 MG PO SCH (21:32)
[2018-02-12] MEDS: METOPROLOL SUCCINATE 25 MG SR 24H TABLET PO SCH (21:33)
[2018-02-12] MEDS: AmLODIPine Tab 5 MG TABLET PO SCH (21:33)
[2018-02-12] MEDS: ACETAMINOPHEN 500 MG TABLET PO SCH (21:33)
[2018-02-13] MEDS ORDERED: Sodium Chloride 0.9% 200 ML IV ONE (03:33)
[2018-02-13] MEDS ORDERED: ceFAZolin 1 GM VIAL ONE (03:33)
[2018-02-13] MEDS: ceFAZolin Inj 2 GM in Sodium Chloride 0.9% 100 ML IV SCH (03:40)
[2018-02-13] MEDS: MORPHINE SULFATE 2 MG/1 ML IVP PRN ×2 (03:44→19:37)
[2018-02-13] MEDS: LEVOTHYROXINE 50 MCG TABLET PO SCH (04:45)
[2018-02-13 05:01] LABS: BASOPHILS # (AUTO) 0 10*3/UL; BASOPHILS % (AUTO) 0 % (0-1); EOSINOPHILS # (AUTO) 0 10*3/UL; EOSINOPHILS % (AUTO) 0 % (0-8); Hematocrit [HCT] 27.3 % (37.0-47.0); LYMPHOCYTES # (AUTO) 0.19 10*3/uL; MEAN CORPUSCULAR HEMOGLOBIN 31.9 PG (27-31); MEAN CORPUSCULAR VOLUME 96.8 FL (81-99); MEAN PLATELET VOLUME 10.2 FL (7.4-12.2); MONOCYTES # (AUTO) 1.36 10*3/UL (0.3-0.8); MONOCYTES % (AUTO) 18.5 % (5-15); NEUTROPHILS # (AUTO) 5.77 10*3/UL; NEUTROPHILS % (AUTO) 78.6 % (50-80); RED BLOOD COUNT 2.82 10^6/uL (4.20-5.40)
[2018-02-13 05:20] LABS: BLOOD UREA NITROGEN 17 mg/dL (7-22)
[2018-02-13 05:21] LABS: PLATELET MORPHOLOGY COMMENT NORMAL MORPHOLOGY (NORM); RBC MORPHOLOGY COMMENT NORMAL MORPHOLOGY (NORM); WBC MORPHOLOGY COMMENT NORMAL MORPHOLOGY (NORM)
[2018-02-13] MEDS: DIVALPROEX SODIUM 250 MG PO SCH (06:56)
[2018-02-13] MEDS: METOPROLOL SUCCINATE 25 MG SR 24H TABLET PO SCH ×2 (08:07→20:26)
[2018-02-13] MEDS: DOCUSATE 100 MG CAPSULE PO SCH ×2 (08:08→20:27)
[2018-02-13] MEDS: HYDROcodone-APAP 5 MG -325 MG TABLET PO PRN ×3 (08:08→19:00)
[2018-02-13] MEDS: Multivitamin Tab 1 TAB PO SCH (08:08)
[2018-02-13] MEDS: ASPIRIN EC 81 MG TABLET PO SCH (08:08)
[2018-02-13] MEDS ORDERED: LISINOPRIL 20 MG TABLET PO SCH (09:00)
[2018-02-13] MEDS ORDERED: FLUOXETINE HCL 10 MG PO SCH (09:00)
[2018-02-13] MEDS ORDERED: ATORVASTATIN 40 MG TABLET PO SCH (09:00)
[2018-02-13] MEDS ORDERED: PANTOPRAZOLE SODIUM 20 MG PO SCH (09:00)
--- NOTE | 2018-02-13 09:06 | DI ---
XR HIP COMPLETE MIN 2VW U/L,02/12/2018 2:58 PM: Clinical History: Postoperative fixation of the right hip. Previous Exam: None at this facility. Findings: AP pelvis, AP view of the right hip and cross table lateral view of the right hip are obtained, and d emonstrate postsurgical changes consistent with a dynamic compression fixation of the right hip. There is mild diffuse osteopenia. There is some irregularity of the pubic bone on the left which is n ot well evaluated on this exam. There are SHABANA javi seen within the deep pelvis. Degenerative changes are noted of the lower lumbar spine. Impression: Status post dynamic compression screw placement within the right proximal femur with anatomic alignme nt.
[2018-02-13] MEDS: ACETAMINOPHEN 500 MG TABLET PO SCH ×2 (10:08→20:33)
[2018-02-13] MEDS: MEMANTINE HCL PO SCH (10:08)
[2018-02-13] MEDS ORDERED: Sodium Chloride 0.9% 500 ML PRIMARY IV PRN (13:11)
[2018-02-13] MEDS: NORMAL SALINE 10 ML SYRINGE FLUSH IVP PRN (13:21)
--- NOTE | 2018-02-13 13:41 | PDOC(PROG) ---
Date and Time of Service: 02/13/2018, 1335 Interval History: Spoke with son at bedside. Patient had no complaints, but history is compromised by advanced dementia. Urine culture results, non-enterococcal group D strep. Should be okay by continuing Keflex. Objective : Data - Labs CBC and BMP: 02/13/18 04:45 02/13/18 04:45 Objective : Exam - General General Appearance: No Acute Distress, Cooperative Additional General Exam Details: Vital Signs - Last Taken Temperature 98.1 F 02/13/18 11:27 Pulse Rate 77 02/13/18 11:27 Respiratory Rate 17 02/13/18 11:27 Blood Pressure 165/74 02/13/18 11:27 Pulse Ox 94 02/13/18 11:27 - Eye Eye Exam: No Scleral Icterus - ENT ENT Exam: Mucous Membranes Moist - Respiratory Respiratory Exam: Clear to Auscultation - Bilaterally, Breathing Non Labored - Cardiovascular Cardiovascular Exam: RRR, No Clicks, No Gallops, No Rubs, Systolic Murmur, No JVD - GI/Abdominal GI/Abdominal Exam: Normal Bowel Sounds, Non Tender, Non Distended, Soft - Extremities Extremities Exam: No Clubbing Present, No Edema Present, No Cyanosis Present Additional Extremities Exam Details: Hip incision on right side is dressed, dressing is clean, dry, intact. - Neurological Neurological Exam: Alert, No Facial Droop, Speech Intact / Clear, Moves All Extremities Equally Assessment and Plan - Patient Problems (1) Closed right hip fracture Current Visit: Yes Status: Acute Code(s): S72.001A - Fracture of unspecified part of neck of right femur, initial encounter for closed fracture Qualifiers: Encounter type: initial encounter Qualified Code(s): S72.001A - Fracture of unspecified part of neck of right femur, initial encounter for closed fracture (2) Hypertension Current Visit: Yes Status: Acute Code(s): I10 - Essential (primary) hypertension Qualifiers: Hypertension type: essential hypertension Qualified Code(s): I10 - Essential (primary) hypertension (3) Hypothyroidism Current Visit: Yes Status: Chronic Code(s): E03.9 - Hypothyroidism, unspecified Qualifiers: Hypothyroidism type: acquired Qualified Code(s): E03.9 - Hypothyroidism, unspecified (4) Anemia Current Visit: Yes Status: Acute Code(s): D64.9 - Anemia, unspecified Qualifiers: Anemia type: unspecified type Qualified Code(s): D64.9 - Anemia, unspecified (5) Hyponatremia Current Visit: Yes Status: Acute Code(s): E87.1 - Hypo-osmolality and hyponatremia (6) Acute renal failure Current Visit: Yes Status: Resolved Code(s): N17.9 - Acute kidney failure, unspecified Qualifiers: Acute renal failure type: unspecified Qualified Code(s): N17.9 - Acute kidney failure, unspecified (7) Dementia Current Visit: Yes Status: Acute Code(s): F03.90 - Unspecified dementia without behavioral disturbance Qualifiers: Dementia type: unspecified type Dementia behavioral disturbance: without behavioral disturbance Qualified Code(s): F03.90 - Unspecified dementia without behavioral disturbance (8) Urinary tract infection Current Visit: Yes Status: Acute Comment: This was present on admission. We'll treat for a total of 5 days to 7 days and then discontinue antibiotics. Code(s): N39.0 - Urinary tract infection, site not specified Qualifiers: Urinary tract infection type: acute cystitis Hematuria presence: without hematuria Qualified Code(s): N30.00 - Acute cystitis without hematuria - Assessment / Plan Additional Assessment/Plan Details: Patient probably does warrant treating for the urinary tract infection and I will finish off course of antibiotics. Today is day 3 of antibiotics. We'll do a total of 4 more days and then discontinue. This was present on admission. PT and OT. Check labs tomorrow, and hopefully if hemoglobin is consistently in the same range as it is now, we can work towards discharge to [place], [place]. Discontinue Roberts catheter. DVT prophylaxis 28 days to 35 days
--- NOTE | 2018-02-13 14:41 | PTI REPORT ---
Thank you for the referral of Monik Aceves. She was seen on 02/13/18 for an inpatient evaluation status post hip fracture. SUBJECTIVE: The patient is an 87-year-old female who is post op from a hip fracture on the right with orders for partial weight-bearing. The patient is unable to recall where she is from or her birthday; she appears to have some cognitive deficits. Per nursing staff, the patient is from the long term in [place] and she sustained a fall resulting in the hip fracture. The plan is for her to go back to the [facility]. Nursing staff also does state that the patient was non ambulatory prior to her hip fracture. PAST MEDICAL HISTORY: Past medical history can be found in the patient's medical record. OBJECTIVE FINDINGS: General observations: The patient was awake upon PT arrival. The patient had just finished participating with some OT activities when PT arrived. The patient is unable to provide any factual subjective information. The patient was sitting up in her recliner chair. Pain: The patient does not verbalize any pain when asked; however, with movements, she does wince at times, suggesting she does have pain of her right hip. Transfers: We did attempt a sit to stand with assist of two, but the patient was unable to stand all the way up and we had to perform a stand pivot transfer from chair to bed, which was a dependent transfer. Bed mobility: Once edge of bed, the patient required max assist x2 to go from seated edge of bed to supine position and max assist x2 for bed mobility. Oxygen: When the patient was sitting up in chair she did not have her oxygen on , although the oxygen was set at 1 liter. When she was sitting up in her chair , her oxygen saturation was 90-91%. Following our stand pivot transfer to the bed, she was at 85%. Her nasal cannula was placed back on at 1 liter and nursing staff was notified. ASSESSMENT: The patient has poor rehab potential secondary to her cognition and age. Problem List: Pain in the right hip Patient requires assistance for all transfers Short-Term Goals: To be met by discharge from inpatient: Patient will be able to perform a stand pivot transfer safely with one person. Long-Term Goals: To be met following discharge from inpatient: Patient will return back to the [facility]. TREATMENT PLAN: Patient will be seen B.I.D during the week and one time per day over the weekend as an inpatient to address the above goals and objectives. INITIAL TREATMENT: Treatment today consisted of the initial evaluation. Following our assessment of transfers, the patient was left in her bed with the alarm set and call light within reach. Her nasal cannula was placed back on at 1 liter and nursing staff was notified. PATEL
[2018-02-13] MEDS ORDERED: Rivaroxaban Tab 10 MG TAB PO ONE (16:20)
--- NOTE | 2018-02-13 16:46 | PT.PROG ---
Progress Note Progress Note: S. Patient stated that she would like to get back in bed. O. Patient transferred from sitting to standing then pivot transfer to the bed where she transferred from sitting to side lying with a pillow between her knees. Patient was left in bed with alarm and call light. A. Patient did not tolerate transfer well, she is very weak and was unable to follow commands to assist with transfer, patient required max assist x 2 for transfer. She would benefit from continued strengthening and mobility. P. Continue POC.
[2018-02-13] MEDS: AmLODIPine Tab 5 MG TABLET PO SCH (20:26)
[2018-02-13] MEDS: CEPHALEXIN 500 MG CAPSULE PO SCH (20:27)
[2018-02-13] MEDS: DIVALPROEX SODIUM 500 MG PO SCH (20:33)
[2018-02-13] MEDS ORDERED: Rivaroxaban Tab 10 MG TAB PO SCH (21:00)
[2018-02-14] MEDS: MORPHINE SULFATE 2 MG/1 ML IVP PRN ×2 (00:03→05:25)
[2018-02-14] MEDS: LEVOTHYROXINE 50 MCG TABLET PO SCH (05:15)
[2018-02-14] MEDS: HYDROcodone-APAP 5 MG -325 MG TABLET PO PRN (05:24)
[2018-02-14 05:25] VITALS: O2SAT 90
[2018-02-14 05:34] LABS: BASOPHILS # (AUTO) 0.01 10*3/UL; BASOPHILS % (AUTO) 0.1 % (0-1); EOSINOPHILS # (AUTO) 0.02 10*3/UL; EOSINOPHILS % (AUTO) 0.2 % (0-8); Hematocrit [HCT] 29.4 % (37.0-47.0); Hemoglobin [HGB] 9.6 g/dL (12.0-16.0); LYMPHOCYTES # (AUTO) 0.39 10*3/uL; MEAN CORPUSCULAR HEMOGLOBIN 31.7 PG (27-31); MEAN CORPUSCULAR HGB CONC 32.7 g/dL (33-37); MEAN PLATELET VOLUME 9.7 FL (7.4-12.2); NEUTROPHILS # (AUTO) 8.89 10*3/UL; NEUTROPHILS % (AUTO) 82.8 % (50-80); RED BLOOD COUNT 3.03 10^6/uL (4.20-5.40)
[2018-02-14 05:41] LABS: PLATELET MORPHOLOGY COMMENT NORMAL MORPHOLOGY (NORM); RBC MORPHOLOGY COMMENT NORMAL MORPHOLOGY (NORM); WBC MORPHOLOGY COMMENT NORMAL MORPHOLOGY (NORM)
[2018-02-14 05:45] LABS: BLOOD UREA NITROGEN 26 mg/dL (7-22); BUN/CREATININE RATIO 43.33 (6-20)
[2018-02-14 07:18] VITALS: BP 136/70; RESP 17; TEMP 98.8
[2018-02-14] MEDS: DIVALPROEX SODIUM 250 MG PO SCH (07:57)
[2018-02-14] MEDS: METOPROLOL SUCCINATE 25 MG SR 24H TABLET PO SCH (08:15)
[2018-02-14] MEDS: ASPIRIN EC 81 MG TABLET PO SCH (08:15)
[2018-02-14] MEDS: CEPHALEXIN 500 MG CAPSULE PO SCH (08:16)
[2018-02-14] MEDS: Multivitamin Tab 1 TAB PO SCH (08:16)
[2018-02-14] MEDS: DOCUSATE 100 MG CAPSULE PO SCH (08:16)
[2018-02-14] MEDS: ACETAMINOPHEN 500 MG TABLET PO SCH (08:16)
[2018-02-14] MEDS: MEMANTINE HCL PO SCH (08:57)
--- NOTE | 2018-02-14 09:11 | ORTHO.PROG ---
Last Taken Vital Signs: Vital Signs - Last Taken Temperature 98.8 F 02/14/18 07:16 Pulse Rate 108 H 02/14/18 07:16 Respiratory Rate 17 02/14/18 07:16 Blood Pressure 136/70 02/14/18 07:16 Pulse Ox 90 02/14/18 07:16 Subjective: Patient sitting up in chair. I saw her yesterday but failed to leave a note. I saw her yesterday she was actually awake and conversant. Today she is a little more sleepy. Objective: Vital signs stable patient is afebrile. Right hip dressings are clean and dry. Hemoglobin and hematocrit 9+ and 29. Postoperative x-rays were reviewed showing satisfactory position of the intramedullary hip screw. Assessment: Impression: Postop day 2 from IM hip screw fixation from right hip fracture. Patient seems stable. H&H are stable. Plan: Plan: I spoke with Dr. Cannon yesterday when I saw the patient. His plan was to try to get her back to the shelter in [facility] today. I think that is reasonable. Our goals with her fairly limited. She can transfer from bed to chair and chair to bed. Her main partial weightbearing on the right leg if possible with a walker. I will try to see her in [place] in 2 weeks at the shelter and remove her stitches. Probably x-ray her couple of weeks beyond that.
--- NOTE | 2018-02-14 10:48 | OT.PROG ---
Progress Note Progress Note: S: pt reports that she is tired. She was not real talkative today. O: pt was seen in her room and was upright in chair. She completed max A transfer x1 with PT observing transfer for safety. She did roll from supine to L side Ind and pillow placed under legs for comfort. Bed alarm was initiated for safety. A: pt continues to need max A transfers at this time. P: continue per POC.
--- NOTE | 2018-02-14 11:49 | OTI REPORT ---
Thank you for the referral of Monik Aceves. She was seen on 02/13/18 for an occupational therapy inpatient evaluation status post right hip fracture. SUBJECTIVE: The patient is an 87-year-old female who is being seen secondary to having a right hip intertrochanteric fracture. Per surgical report, they did put a nail in the hip and she is partial weight-bearing. Per Dr. England, the patient is from the [facility]. A report from the patient was definitely skewed. She stated [place] Her cognition was definitely variable throughout the evaluation today. PAST MEDICAL HISTORY: Past medical history can be found in the patient's medical record. OBJECTIVE FINDINGS: General observations: The patient was alert to her name and her month and day; however, she did not know the year and she did not know how old she was. She did not know where she was. After cueing, she stated she lives in [place]. The patient was sitting in chair upon the therapist's arrival. Activities of daily living: The patient is not cognizant enough to learn adaptive equipment devices. We did focus on simple ADLs including brushing her teeth and face. The patient needed min assist as well as verbal cues in order to start doing some of those simple activities. Once she started brushing teeth , she was able to finish with the task. Transfers: The patient was able to complete a functional transfer with max assist x1. Strength: The patient was able to lift her upper extremities. Strength for shoulder flexion was 4/5. Shoulder extension was 3+/5. Elbow flexion/ extension was 3+/5. Wrist flexion/extension was 3+/5. Range of motion: The patient demonstrates 110 degrees of shoulder flexion and is within functional limits for elbow and wrist. ASSESSMENT: Problem List: Decreased cognition Decreased range of motion Decreased upper extremity strength Decreased ability to complete functional transfers Decreased ability to perform ADLs Short-Term Goals: To be met by discharge from inpatient: Patient will be able to copy range of motion activities for her upper extremities to increase abilities for her functional transfers. Patient will be able to complete simple strengthening activities with theraband to improve strength for functional transfers. Patient will be able to complete functional transfers with mod assist. Long-Term Goals: To be met following discharge from inpatient: Patient will return to the [facility]. TREATMENT PLAN: Patient will be seen B.I.D during the week and one time per day over the weekend as an inpatient to address the above goals and objectives. INITIAL TREATMENT: Treatment today consisted of the initial evaluation followed by range of motion activities with bilateral upper extremities. The patient was able to complete hygiene activities with max verbal cueing and min assist to initiate tasks. PATEL
--- NOTE | 2018-02-14 11:50 | DCSUMMARY ---
Hospitalization Summary Admit Date: 02/09/2018 Discharge Date: 02/14/18 Primary Diagnosis:: right hip fracture status post ORIF Hospital Course: This very pleasant but demented 87-year-old female from the [facility]. She had a fall and broke her hip and was admitted here in transfer for care of her hip fracture. My partner, Dr. Kong, admitted her. See his history and physical exam for further details. In short, her hip surgery was delayed for a number of reasons, including some concern over her platelets and she got 2 units of FFP at the time of surgery, and to make sure that she was safe from a cardiovascular perspective. After she was cleared, she proceeded to operating room had an open reduction internal fixation and did well postoperatively. Her pain was well controlled. Therapy was limited and she is max assist for transfers. For DVT prophylaxis we have her on Xarelto. She did have a urinary tract infection, present on admission, and we are finishing therapy with Keflex for the next 3 days for total of 7 days of therapy. Catheter has been removed. The patient's other medical issues did not cause problems during the hospital stay. We did find a vitamin D deficiency and started her on vitamin D as well. Today, history again is very difficult to obtain due to her dementia but she denies any pain. The most difficult issue in terms of getting her back to her place of living in [place] around her family support system is that she will have to go by nonemergent ambulance. She is nonambulatory. She is not able to really go in the facility van sitting upright in a chair for the entire ride, and she needs to go to [place] to be close to her family support system. Assessment and Plan: 1. As per discharge assessments noted 2. Disposition: Patient is discharged back to [facility] 3. Condition on discharge, stable and improved. 4. Diet: regular diet 5. Activities: Partial weightbearing on right side. Orthopedics will remove javi in 2 weeks. 6. Follow-Up: 1. See primary care provider, Dr. Baca, at the [facility] 2. 7. Medications at the Time of Discharge: Home Medications 3 Medication Instructions Recorded Confirmed Type Multivitamin [Multi-Vitamin Daily] 1 each PO QD tab 09/03/13 10/07/14 History Memantine HCl [Namenda Xr] 1 cap PO DAILY cap 08/23/16 History Aspirin [Aspir 81] 1 tab PO DAILY tab 09/13/16 History Atorvastatin Calcium 1 tab PO DAILY tab 09/13/16 History ALPRAZolam Tab [Xanax Tab] 0.25 mg PO TID PRN 02/10/18 02/10/18 History Amlodipine Besylate 5 mg PO QPM 02/10/18 02/10/18 History Cholestyramine [Cholestyramine PO BID 02/10/18 History Resin] Cyanocobalamin Inj [Vitamin B-12 1 ml IM Q30D 02/10/18 02/10/18 History Inj] Divalproex Sodium [Depakote] 500 mg PO BEDTIME 02/10/18 02/10/18 History Divalproex Sodium [Divalproex 250 mg PO EVERY AM 02/10/18 02/10/18 History Sodium ER] Levothyroxine Sodium 50 mcg PO DAILY 02/10/18 02/10/18 History Lidocaine/Prilocaine TOPICAL BID 02/10/18 History [Lidocaine-Prilocaine Cream] Lisinopril 20 mg PO DAILY 02/10/18 02/10/18 History Loperamide [Imodium] PO Q4H PRN PRN 02/10/18 History Lutein 20 PO DAILY 02/10/18 History Metoprolol Succinate [Toprol XL] 25 mg PO BID 02/10/18 02/10/18 History Pantoprazole Sodium 20 mg PO DAILY 02/10/18 02/10/18 History Acetaminophen [Tylenol] 1,000 mg PO BID tab 02/14/18 Rx Cephalexin [Keflex] 500 mg PO BID #6 cap 02/14/18 Rx Cholecalciferol [Vitamin D] 1,000 unit PO DAILY #90 cap 02/14/18 Rx Hydrocodone/Acetaminophen 1 tab PO TID PRN #60 tab 02/14/18 Rx [Hydrocodone-Acetamin 5-325 mg] Rivaroxaban [Xarelto] 10 mg PO BEDTIME #28 tab 02/14/18 Rx 8. Time, care, counseling and coordination of care for this discharge is greater than 30 minutes. Exam - Vitals Vital Signs: Vital Signs Temperature 98.8 F Temperature Source Temporal Artery Scan Pulse Rate [Pulse Oximeter] 108 Pulse Rate [Left Dorsalis 77 Pedis] Pulse Rate [Right Dorsalis 72 Pedis] Pulse Rate [Bilateral Radial] 72 Pulse Rate [Apical] 82 Pulse Rate 106 Respiratory Rate 17 Blood Pressure [Right Arm] 136/70 Blood Pressure 146/82 Pulse Ox 90 Oxygen Flow Rate 2.5 Oxygen Delivery Method Room Air Height 5 ft 4 in Weight 128 lb 0.006 oz - General General Appearance: No Acute Distress, Cooperative - Respiratory Respiratory Exam: POSITIVE: Clear to Auscultation - Bilaterally, Breathing Non Labored - Cardiovascular Cardiovascular Exam: POSITIVE: RRR, No Clicks, No Gallops, No Rubs, Systolic Murmur, No JVD - GI/Abdominal GI/Abdominal Exam: POSITIVE: Normal Bowel Sounds, Non Tender, Non Distended, Soft - Extremities Extremities Exam: POSITIVE: No Clubbing Present, No Edema Present, No Cyanosis Present Additional Extremities Exam Details: right hip without bleeding. dressing is dry and intact. - Neurological Neurological Exam: POSITIVE: Alert, No Facial Droop, Speech Intact / Clear Data Peritnent Studies: 02/10/18 02/10/18 02/11/18 08:22 21:17 04:30 WBC Hgb Hct Plt Count Sodium 134 L Potassium Chloride Carbon Dioxide Anion Gap BUN Creatinine BUN/Creatinine Ratio Glucose Calculated Osmolality Calcium Iron TIBC % Saturation Ferritin Total Bilirubin 0.3 AST 31 ALT 31 Alkaline Phosphatase 70 Total Protein 5.4 L Albumin 2.8 L Globulin 2.6 Albumin/Globulin Ratio 1.00 L Vitamin B12 Vitamin D 25-Hydroxy Serum Folate Urine Nitrate Positive H Ur Random Creatinine 140.4 Ur Random Sodium 19 L 02/11/18 02/11/18 02/11/18 04:30 04:30 04:30 WBC Hgb Hct Plt Count Sodium Potassium Chloride Carbon Dioxide Anion Gap BUN Creatinine BUN/Creatinine Ratio Glucose Calculated Osmolality Calcium Iron 21 L TIBC 230 L % Saturation 9.13 L Ferritin 213.00 Total Bilirubin AST ALT Alkaline Phosphatase Total Protein Albumin Globulin Albumin/Globulin Ratio Vitamin B12 > 1000 H Vitamin D 25-Hydroxy Serum Folate 15.6 Urine Nitrate Ur Random Creatinine Ur Random Sodium 02/13/18 02/14/18 02/14/18 04:45 05:26 05:26 WBC 10.74 Hgb 9.6 L Hct 29.4 L Plt Count 176 Sodium 140 Potassium 4.0 Chloride 106 Carbon Dioxide 22 L Anion Gap 12 BUN 26 H Creatinine 0.6 BUN/Creatinine Ratio 43.33 H Glucose 113 H Calculated Osmolality 295.0 H Calcium 9.3 Iron TIBC % Saturation Ferritin Total Bilirubin AST ALT Alkaline Phosphatase Total Protein Albumin Globulin Albumin/Globulin Ratio Vitamin B12 Vitamin D 25-Hydroxy 20.7 L Serum Folate Urine Nitrate Ur Random Creatinine Ur Random Sodium 02/10/18 08:57 Urine Culture - Final Urine,Catheterized 02/10/18 07:47 Nasal Screen MRSA (PCR)(YANETH) - Final Nasal Swab urine is non group D strep, no further workup nasal MRSA negative. [address] [facility]. [facility] [place] [id number] PH: DD: [phone] FAX: [phone] ~DIAGNOSTIC IMAGING REPORT~ Patient: Monik Aceves : 1930 Sex: F Age: 87 Exam Name: XR HIP COMPLETE MIN 2VW U/L Exam Date: 02/12/18 Report # : [id number] CPT Code: 48837 EMR/MR #: [id number] Ordering: Aleja Still Admiting: BIANCA SOLITARIO DO Primary: ÁNGEL BACA MD Attending: BIANCA SOLITARIO DO Signed XR HIP COMPLETE MIN 2VW U/L,02/12/2018 2:58 PM: Clinical History: Postoperative fixation of the right hip. Previous Exam: None at this facility. Findings: AP pelvis, AP view of the right hip and cross table lateral view of the right hip are obtained, and demonstrate postsurgical changes consistent with a dynamic compression fixation of the right hip. There is mild diffuse osteopenia. There is some irregularity of the pubic bone on the left which is not well evaluated on this exam. There are SHABANA javi seen within the deep pelvis. Degenerative changes are noted of the lower lumbar spine. Impression: Status post dynamic compression screw placement within the right proximal femur with anatomic alignment. Dictated By: 02/13/18 0859 TANYA TALLEY MD. Signed By: 02/13/18 0906 TANYA TALLEY MD. Patient Problems - Patient Problem List (1) Closed right hip fracture Current Visit: Yes Status: Acute Code(s): S72.001A - Fracture of unspecified part of neck of right femur, initial encounter for closed fracture Qualifiers: Encounter type: initial encounter Qualified Code(s): S72.001A - Fracture of unspecified part of neck of right femur, initial encounter for closed fracture Category: Medical (2) Hypertension Current Visit: Yes Status: Acute Code(s): I10 - Essential (primary) hypertension Qualifiers: Hypertension type: essential hypertension Qualified Code(s): I10 - Essential (primary) hypertension Category: Medical (3) Hypothyroidism Current Visit: Yes Status: Chronic Code(s): E03.9 - Hypothyroidism, unspecified Qualifiers: Hypothyroidism type: acquired Qualified Code(s): E03.9 - Hypothyroidism, unspecified Category: Medical (4) Anemia Current Visit: Yes Status: Acute Code(s): D64.9 - Anemia, unspecified Qualifiers: Anemia type: unspecified type Qualified Code(s): D64.9 - Anemia, unspecified Category: Medical (5) Hyponatremia Current Visit: Yes Status: Acute Code(s): E87.1 - Hypo-osmolality and hyponatremia Category: Medical (6) Acute renal failure Current Visit: Yes Status: Resolved Code(s): N17.9 - Acute kidney failure, unspecified Qualifiers: Acute renal failure type: unspecified Qualified Code(s): N17.9 - Acute kidney failure, unspecified Category: Medical (7) Dementia Current Visit: Yes Status: Acute Code(s): F03.90 - Unspecified dementia without behavioral disturbance Qualifiers: Dementia type: unspecified type Dementia behavioral disturbance: without behavioral disturbance Qualified Code(s): F03.90 - Unspecified dementia without behavioral disturbance Category: Medical (8) Urinary tract infection Current Visit: Yes Status: Acute Code(s): N39.0 - Urinary tract infection, site not specified Qualifiers: Urinary tract infection type: acute cystitis Hematuria presence: without hematuria Qualified Code(s): N30.00 - Acute cystitis without hematuria Category: Medical
[2018-02-14] MEDS ORDERED: Rivaroxaban Tab 10 MG TAB PO SCH (17:00)
== END 2018-02-14 12:14 | DRG 481 ==
LOC: MED/SURG 19:40 → OPS 02-12 10:36 → MED/SURG 02-12 14:43
PROVIDERS: ADMIT Family Medicine; ATTEND Family Medicine